=== PATIENT | male | born 1990 | race Caucasian/White ===

== ENCOUNTER 2023-08-11 23:49 | Emergency (ER) | payer SELFPAY ==
[2023-08-11 23:51] VITALS: BP 140/91
[2023-08-12 00:46] LABS: % Basophils 0.8 % (0-2); % Eosinophils 0.7 % (0-6); % Immature Granulocytes 0.6 % (0-0.5); % Lymphocytes 23.5 % (20.5-51.1); % Monocytes 9.2 % (1.7-9.3); % Neutrophils 65.2 % (42.2-75.2); ALT (SGPT) 24 U/L (0-50); AST (SGOT) 28 U/L (17-59); Absolute Basophils 0.1 10^3/uL (0-0.2); Absolute Eosinophils 0.1 10^3/uL (0-0.7); Absolute Lymphocytes 1.7 10^3/uL (1.2-3.4); Absolute Monocytes 0.7 10^3/uL (0.1-0.6); Absolute Neutrophils 4.7 10^3/uL (1.4-6.5); Albumin 4.8 g/dl (3.5-5.0); Alkaline Phosphatase 66 U/L (38-126); Blood Urea Nitrogen 12 mg/dl (9-20); Calcium 9.9 mg/dl (8.4-10.2); Carbon Dioxide 27 mmol/L (22-30); Chloride 102 mmol/L (98-107); Glucose 96 mg/dl (70-99); Hematocrit 42.7 % (39.0-52.0); Hemoglobin 14.6 g/dL (13.0-18.0); Mean Corp Hgb Conc. 34.2 g/dL (33.0-37.0); Mean Corpuscular Hgb 29.9 pg (27.0-31.0); Mean Corpuscular Volume 87.3 fL (80.0-94.0); Mean Platelet Volume 9.5 fL (7.4-10.4); Nucleated Red Blood Cells % 0 % (-); Platelet Count 218 10^3/uL (130-400); Potassium 4.3 mmol/L (3.5-5.1); Red Blood Cell Count 4.89 10^6/uL (4.70-6.10); Red Cell Dist. Width 13.2 % (11.5-14.5); Sodium 139 mmol/L (135-145); Total Bilirubin 0.8 mg/dl (0.2-1.3); Total Protein 7.4 g/dl (6.3-8.2); White Blood Cell Count 7.2 10^3/uL (4.8-10.8); eGFR > 60.00
[2023-08-12 00:49] LABS: Troponin I < 0.012 ng/ml
== END 2023-08-12 03:08 ==
LOC: EMR 23:49
PROVIDERS: Emergency Medicine
DX: R07.89 Other chest pain (principal); M79.602 Pain in left arm; R20.0 Anesthesia of skin; R03.0 Elevated blood-pressure reading, without diagnosis of hypertension; Z53.21 Procedure and treatment not carried out due to patient leaving prior to being seen by health care provider
CPT/HCPCS: 99281; 80053; 84484; 85025; 93005

== ENCOUNTER → 2023-08-25 13:26 | Outpatient (REF) | payer BC, SELFPAY | LOC: RCS 13:26 | PROVIDERS: ATTENDING PHYSICIAN Physician Assistant Medical | DX: R00.1 Bradycardia, unspecified (principal) | CPT/HCPCS: 93225; 93226 ==

== ENCOUNTER → 2023-09-26 07:23 | Outpatient (REF) | payer BC, SELFPAY | LOC: RCS 07:23 | PROVIDERS: ATTENDING PHYSICIAN Physician Assistant Medical | DX: R00.1 Bradycardia, unspecified (principal) | CPT/HCPCS: 93306 ==